=== PATIENT | female | born 1970 | race Hispanic/Latino ===

== ENCOUNTER 2017-03-16 02:30 | Emergency (ER) | payer SELFPAY ==
[2017-03-16] MEDS ORDERED: ASPIRIN 325 MG TABLET ONE (02:43)
[2017-03-16 03:11] LABS: BASOPHILS % (AUTO) 1.3 % (0.0-5.0); EOSINOPHILS % (AUTO) 3.4 % (0.0-8.0); HEMATOCRIT 34.1 % (36-48); LYMPHOCYTES % (AUTO) 32.9 % (21.0-51.0); MEAN CORPUSCULAR VOLUME 72.7 fL (79-99); MONOCYTES % (AUTO) 8.6 % (3.0-13.0); NEUTROPHILS % (AUTO) 53.8 % (40.0-77.0); NUCLEATED RED BLOOD CELLS 0.1 % (0.0-0.19); PLATELET COUNT (AUTO) 358 K/uL (130-400); RED CELL DISTRIBUTION WIDTH 16.9 % (11.0-15.5); WHITE BLOOD COUNT (AUTO) 8.9 K/uL (4.8-10.8)
[2017-03-16 03:21] LABS: CREATININE 0.7 mg/dL (0.5-1.5); POTASSIUM 3.3 mmol/L (3.5-5.1)
[2017-03-16 03:31] LABS: INR 0.9 (0.85-1.15); PARTIAL THROMBOPLASTIN TIME 24.3 SEC (26.3-35.5); PROTHROMBIN TIME 9.5 SEC (9.6-11.6)
[2017-03-16 03:34] LABS: ALBUMIN 3.7 g/dL (3.5-5.0); BILIRUBIN,TOTAL 0.1 mg/dL (0.2-1.0); CREATINE KINASE MB 0.8 ng/mL (0.5-3.6); TOTAL PROTEIN, SERUM 7.9 g/dL (6.0-8.3)
[2017-03-16] MEDS ORDERED: MORPHINE SULFATE 2 MG/ML 1ML SYG ONE (04:49)
== END 2017-03-16 05:24 | disposition home or self-care (01) ==
LOC: EDH 02:30
DX: R07.89 Other chest pain (principal); I10 Essential (primary) hypertension; R22.0 Localized swelling, mass and lump, head; Z98.51 Tubal ligation status; Z72.0 Tobacco use
CPT/HCPCS: 36415; 71045; 80053; 81025; 82550; 82553; 83874; 84484; 85025; 85610; 85730; 93005; 94761; 96374

== ENCOUNTER 2017-05-09 05:05 | Emergency (ER) | payer SELFPAY ==
[2017-05-09] MEDS ORDERED: ASPIRIN 81MG TAB.CHEW ONE (05:28)
[2017-05-09 05:33] LABS: BASOPHILS % (AUTO) 1.2 % (0.0-5.0); EOSINOPHILS % (AUTO) 4.8 % (0.0-8.0); HEMATOCRIT 35.5 % (36-48); LYMPHOCYTES % (AUTO) 32.3 % (21.0-51.0); MEAN CORPUSCULAR HEMOGLOBIN 23.8 pg (27.0-33.0); MEAN CORPUSCULAR HGB CONC 32.8 g/dL (32.0-36.0); MEAN CORPUSCULAR VOLUME 72.4 fL (79-99); MONOCYTES % (AUTO) 10.1 % (3.0-13.0); NEUTROPHILS % (AUTO) 51.6 % (40.0-77.0); PLATELET COUNT (AUTO) 301 K/uL (130-400); RED CELL DISTRIBUTION WIDTH 16.9 % (11.0-15.5); WHITE BLOOD COUNT (AUTO) 8.5 K/uL (4.8-10.8)
[2017-05-09 05:49] LABS: CREATININE 0.7 mg/dL (0.5-1.5); INR 0.91 (0.85-1.15); PARTIAL THROMBOPLASTIN TIME 24.7 SEC (26.3-35.5); POTASSIUM 3.8 mmol/L (3.5-5.1); PROTHROMBIN TIME 9.6 SEC (9.6-11.6)
[2017-05-09] MEDS ORDERED: HYDROCODONE/ACETAMINOPHEN 5/325 MG TAB ONE (06:04)
[2017-05-09 06:05] LABS: ALBUMIN 3.7 g/dL (3.5-5.0); BILIRUBIN,TOTAL 0.2 mg/dL (0.2-1.0)
[2017-05-09] MEDS ORDERED: MORPHINE SULFATE 4 MG/1ML SYG ONE (06:33)
[2017-05-09] MEDS ORDERED: ONDANSETRON HCL MDV 20ML 2 MG/ML VIAL ONE (06:33)
== END 2017-05-09 06:51 | disposition home or self-care (01) ==
LOC: EDH 05:05
DX: F41.9 Anxiety disorder, unspecified (principal); I10 Essential (primary) hypertension; R07.89 Other chest pain; Z72.0 Tobacco use
CPT/HCPCS: 36415; 71045; 80053; 82550; 84484; 84702; 85025; 85610; 85730; 93005; 96374; 96375; 99285; J2270

== ENCOUNTER 2019-02-06 09:55 | Emergency (ER) | payer SELFPAY ==
[2019-02-06] MEDS ORDERED: ASPIRIN 325 MG TABLET ONE (10:10)
[2019-02-06 10:12] LABS: BASOPHILS % (AUTO) 0.8 % (0.0-5.0); EOSINOPHILS % (AUTO) 1.5 % (0.0-8.0); HEMATOCRIT 40.4 % (36-48); LYMPHOCYTES % (AUTO) 22.8 % (21.0-51.0); MEAN CORPUSCULAR HEMOGLOBIN 27.6 pg (27.0-33.0); MEAN CORPUSCULAR HGB CONC 32.4 g/dL (32.0-36.0); MEAN CORPUSCULAR VOLUME 85.2 fL (79-99); MONOCYTES % (AUTO) 6.9 % (3.0-13.0); NEUTROPHILS % (AUTO) 67.8 % (40.0-77.0); PLATELET COUNT (AUTO) 322 K/uL (130-400); RED BLOOD CELL COUNT(AUTO) 4.74 MIL/uL (4.00-5.50); RED CELL DISTRIBUTION WIDTH 13.7 % (11.0-15.5); WHITE BLOOD COUNT (AUTO) 8.9 K/uL (4.8-10.8)
[2019-02-06] MEDS ORDERED: DIAZEPAM 5 MG TABLET ONE (10:14)
[2019-02-06 10:20] LABS: CREATININE 0.7 mg/dL (0.5-1.5); POTASSIUM 4.9 mmol/L (3.5-5.1)
[2019-02-06 10:26] LABS: ALBUMIN 3.5 g/dL (3.5-5.0); BILIRUBIN,TOTAL 0.3 mg/dL (0.2-1.0); TOTAL PROTEIN, SERUM 7.6 g/dL (6.0-8.3)
[2019-02-06 10:29] LABS: INR 0.92 (0.85-1.15); PARTIAL THROMBOPLASTIN TIME 26.2 SEC (26.3-35.5); PROTHROMBIN TIME 9.7 SEC (9.6-11.6)
[2019-02-06] MEDS ORDERED: KETOROLAC TROMETHAMINE 30MG/ML ONE (11:26)
== END 2019-02-06 12:58 | disposition home or self-care (01) ==
LOC: EDH 09:55
DX: R07.89 Other chest pain (principal); R51 Headache; I10 Essential (primary) hypertension; Z98.51 Tubal ligation status
CPT/HCPCS: 36415; 71045; 80053; 82550; 84484 ×2; 85025; 85610; 85730; 93005 ×2; 96374; 99285; J1885

== ENCOUNTER 2024-11-21 11:40 | Emergency (ER) | payer SELFPAY ==
[~2024-11-21] VITALS: Ht 152.4 cm; Wt 80.7 kg
--- NOTE | 2024-11-21 11:55 | ERN ---
General Chief Complaint: Headache Stated Complaint: HEADACHE Time Seen by MD: 11:42 History of Present Illness Initial Comments 54-year-old female who presents to emergency room with the acute onset anxiety. Patient states that her anxiety was very high and wanted to get checked out. Of note patient states that her son recently tried to commit suicide but was unsuccessful. Also states that her other son has been abusing drugs recently. No fever. No cough. No shortness a breath. No nausea vomiting diarrhea. No numbness or tingling. She states that she has had a CVA before in the past however they resolve spontaneously and only occur when she has high levels of anxiety. PCP: Dr. Ovalles Allergies: Coded Allergies: No Known Allergies (Unverified Allergy, Unknown, 11/05/23) Past Medical History Past Medical History: Anxiety, CVA, Depression, Diabetes-Type II, Hypertension Past Surgical History: Cholecystectomy, Other Surgical History Other: TUBAL LIGATION Psych: (+) depression, (+) anxiety Review of Systems: was completed, & the rest were negative. Physical Exam General Appearance: (+) no apparent distress, (+) anxious Orientation: (+) oriented x 3 Eyes Comment Positive tearing. 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, (+) normal gait Neurologic/Psychiatric Comment Anxious Skin: (+) normal color Results Laboratory and Microbiology Lab and Micro Result Laboratory Tests Test 11/21/24 12:17 White Blood Count 10.1 K/uL (4.8-10.8) Red Blood Count 4.83 MIL/uL (4.00-5.50) Hemoglobin 13.6 g/dL (12.0-16.0) Hematocrit 42.0 % (36-48) Mean Corpuscular Volume 87.0 fL (79-99) Mean Corpuscular Hemoglobin 28.2 pg (27.0-33.0) Mean Corpuscular Hemoglobin Concent 32.4 g/dL (32.0-36.0) Red Cell Distribution Width 14.3 % (11.0-15.5) Platelet Count 299 K/uL (130-400) Mean Platelet Volume 10.6 fL (7.5-10.5) H Immature Granulocyte % (Auto) 0.3 % (0-1) Neutrophils (%) (Auto) 73.6 % (40.0-77.0) Lymphocytes (%) (Auto) 18.5 % (21.0-51.0) L Monocytes (%) (Auto) 5.2 % (3.0-13.0) Eosinophils (%) (Auto) 1.4 % (0.0-8.0) Basophils (%) (Auto) 1.0 % (0.0-5.0) Neutrophils # (Auto) 7.4 K/uL (1.8-7.7) Lymphocytes # (Auto) 1.9 K/uL (1.0-4.8) Monocytes # (Auto) 0.5 K/uL (0.1-1.0) Eosinophils # (Auto) 0.14 K/uL (0.00-0.70) Basophils # (Auto) 0.10 K/uL (0.00-0.20) Absolute Immature Granulocyte (auto 0.03 K/uL (0-1) Nucleated Red Blood Cells 0.0 % (0.0-0.19) Sodium Level 140 mmol/L (136-145) Potassium Level 3.7 mmol/L (3.5-5.1) Chloride Level 103 mmol/L (101-111) Carbon Dioxide Level 27 mmol/L (21-32) Blood Urea Nitrogen 14 mg/dL (7-18) Creatinine 0.5 mg/dL (0.5-1.0) Glomerular Filtration Rate Calc 111 mL/min (>90) Random Glucose 138 mg/dL (70-105) H Total Calcium 8.7 mg/dL (8.5-10.1) MDM 54-year-old female here for evaluation of acute anxiety. No signs and symptoms concerning for stroke at this time. We will get basic blood work and provide fluids. We will also give Atarax for acute stress reaction. Patient re-evaluated at this time. She is well-appearing no acute distress is much more calm than initial presentation. She understands that she needs to follow up with the PCP for management and evaluation of stress. At this time we will give her a short prescription for Atarax PRN for the next few days. Advised on calming techniques. She is advised also to come back to the emergency room if she has worsening symptoms. She understands that her triggers are her two children who are going through multiple issues at this time. Reviewed labs with the patient. We will discharge at this time. Patient is amenable to discharge ED Course Orders Procedure Category Date Status Time Basic Metabolic Panel LAB 11/21/24 Complete 11:53 Cbc With Differential LAB 11/21/24 Complete 11:53 Urinalysis Profile LAB 11/21/24 Logged 11:53 0.9%Nacl 1000ml (Ns PHA 11/21/24 Complete 1000ml) 12:00 Hydroxyzine 50mg Vial PHA 11/21/24 Complete (Atarax 50mg Inj) 12:00 Current Medications Medications (Trade) Dose Ordered Sig/Jeff Route PRN Reason Start Time Stop Time Status Last Admin Dose Admin Hydroxyzine HCl (ATArax 50MG INJ) 25 mg ONCE ONCE IM 11/21/24 12:00 11/21/24 12:01 DC 11/21/24 12:16 Sodium Chloride 1,000 ml @ 0 mls/hr ONCE ONCE IV 11/21/24 12:00 11/21/24 12:01 DC 11/21/24 12:17 Vital Signs Date Time Temp Pulse Resp B/P (MAP) Pulse Ox O2 Delivery O2 Flow Rate FiO2 11/21/24 11:55 98.4 74 20 170/91 97 Room Air* 0 21 11/21/24 11:42 97.9 92 18 175/102 98 Room Air 1255: Patient well-appearing no acute distress. Is more calm at this time. States the medication helped her. DX & DISP Disposition: Discharge Decision to Admit Time: 12:57 Departure Impression: Primary Impression: Acute stress reaction Condition: Stable Referrals: SELF,REFERRAL (PCP) LEIGHA VIVAS MD Nov 21, 2024 11:55
[2024-11-21] MEDS: 0.9%NACL 1000ML 1,000 ML IV ONE (12:17)
[2024-11-21 12:24] LABS: IMMATURE GRANULOCYTE ABSOLUTE 0.03 K/uL (0-1); NUCLEATED RED BLOOD CELLS 0.0 % (0.0-0.19); PLATELET COUNT (AUTO) 299 K/uL (130-400); RED BLOOD CELL COUNT(AUTO) 4.83 MIL/uL (4.00-5.50); RED CELL DISTRIBUTION WIDTH 14.3 % (11.0-15.5); WHITE BLOOD COUNT (AUTO) 10.1 K/uL (4.8-10.8)
[2024-11-21 12:32] LABS: CREATININE 0.5 mg/dL (0.5-1.0); GLOMERULAR FILTR. RATE CALC 111.0 mL/min (>90); GLUCOSE,RANDOM 138.0 mg/dL (70-105); SODIUM SERUM 140.0 mmol/L (136-145); UREA NITROGEN, BLOOD 14.0 mg/dL (7-18)
[2024-11-21] MEDS ORDERED: HYD25 PO (13:44)
[2024-11-21 13:46] VITALS: BP 140/71; PULSE 74; RESP 18; TEMP 98.1; O2SAT 98
== END 2024-11-21 13:48 | disposition home or self-care (01) ==
LOC: EDH 11:40
DX: F43.0 Acute stress reaction (principal); E11.9 Type 2 diabetes mellitus without complications; F41.9 Anxiety disorder, unspecified; I10 Essential (primary) hypertension; Z86.73 Personal history of transient ischemic attack (TIA), and cerebral infarction without residual deficits; Z90.49 Acquired absence of other specified parts of digestive tract; Z98.51 Tubal ligation status
CPT/HCPCS: 99283; 96360; 80048; 85025; 36415; 96372; J3410; J7030

== ENCOUNTER 2024-11-23 16:55 | Inpatient (IN) | payer SELFPAY ==
[~2024-11-23] VITALS: Ht 152.4 cm; Wt 79.7 kg
[~2024-11-23 16:55] MED LIST: HYD25 PO
--- NOTE | 2024-11-23 17:25 | EKG ---
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
[2024-11-23 17:34] LABS: IMMATURE GRANULOCYTE ABSOLUTE 0.02 K/uL (0-1); NUCLEATED RED BLOOD CELLS 0.0 % (0.0-0.19); PLATELET COUNT (AUTO) 311 K/uL (130-400); RED BLOOD CELL COUNT(AUTO) 4.97 MIL/uL (4.00-5.50); RED CELL DISTRIBUTION WIDTH 13.7 % (11.0-15.5); WHITE BLOOD COUNT (AUTO) 8.9 K/uL (4.8-10.8)
[2024-11-23 17:42] LABS: CREATININE 0.6 mg/dL (0.5-1.0); GLOMERULAR FILTR. RATE CALC 106.0 mL/min (>90); GLUCOSE,RANDOM 99.0 mg/dL (70-105); SODIUM SERUM 141.0 mmol/L (136-145); UREA NITROGEN, BLOOD 14.0 mg/dL (7-18)
[2024-11-23 17:51] LABS: CREATINE KINASE, TOTAL 78.0 U/L (21-232)
--- NOTE | 2024-11-23 17:57 | HMCIMG ---
EXAM: CT Head Without IV contrast. CLINICAL HISTORY: numbness TECHNIQUE: Axial computed tomography images of the head/brain without intravenous contrast. COMPARISON: None provided. FINDINGS: BRAIN: No evidence of acute hemorrhage. No mass lesion. No CT evidence for acute territorial infarct. No midline shift or extra-axial collections. VENTRICLES: No hydrocephalus. ORBITS: The orbits are unremarkable. SINUSES AND MASTOIDS: The paranasal sinuses and mastoid air cells are clear. BONES: No fracture. SOFT TISSUES: Unremarkable. IMPRESSION: No acute intracranial abnormality. /[place]
--- NOTE | 2024-11-23 18:19 | NUR ---
ASSUMED PT CARE AT THIS TIME.
--- NOTE | 2024-11-23 19:07 | ERN ---
General Chief Complaint: Numbness Stated Complaint: LEFT SIDE WEAKNESS/NUMBNESS X 3 DAYS Time Seen by MD: 17:07 Time Seen by Midlevel: 17:07 Source: patient History of Present Illness Initial Comments Patient is a 54-year-old female presenting to the emergency department for evaluation of hypertension. The patient states her blood pressure was over 200 systolic prior to arrival. She does have a history of hypertension and reports taking her medications as prescribed today. She is on lisinopril 20 mg. However, she was also having chest discomfort and worsening left-sided weakness along with left facial numbness. She does report having a history of stroke two years ago and has residual left-sided weakness but states her weakness is worse today. She is having the same symptoms she had when she was diagnosed with a stroke two years ago. Allergies: Coded Allergies: No Known Allergies (Unverified Allergy, Unknown, 11/05/23) Home Meds Active Scripts Hydroxyzine HCl (Atarax) 25 Mg Tab, 1 CAP PO TID for anxiety, #21 CAP 0 Refills Prov:LEIGHA VIVAS MD 11/21/24 Past Medical History Past Medical History: Anxiety, CVA, Depression, Diabetes-Type II, High Cholesterol, Hypertension Past Surgical History: Cholecystectomy, Other, BTL Surgical History Other: TUBAL LIGATION ROS Dictation CONSTITUTIONAL: Negative except for HPI HEAD/FACE: Negative except for HPI EENT: Negative except for HPI RESPIRATORY: Negative except for HPI GASTROINTESTINAL/ABDOMINAL: Negative except for HPI GENITOURINARY: Negative except for HPI MUSCULOSKELETAL: Negative except for HPI INTEGUMENTARY: Negative except for HPI NEUROLOGICAL/PSYCH: Negative except for HPI HEMATOLOGIC/LYMPHATIC: Negative except for HPI All Systems Negative, Except as noted above. 13 point review of systems assessed and all negative except for above. Physical Exam Physical Exam Dictation Vital Signs reviewed General Appearance: Alert, oriented x 3, no acute distress, well developed, nourished. Head and Face: non-traumatic. Eyes: PERRL, pink conjunctivas, eyelid no trauma, anterior chamber with arcus senilis. Ears: Pinnas intact and no signs of trauma or erythema ear canals clear and no discharge TM no erythema Nose: No discharge, no bleeding. Oropharynx: Mouth normal, tongue pink, pharynx clear,no erythema, tonsils no exudates, no abscesses noted, mucous membrane moist Neck: Supple, non-tender, no thyromegaly, no masses, no JVD, no bruits Breast:Deferred Chest:No tenderness, no crepitus, no paradoxical movement, no retractions Lungs:Clear, well-ventilated, symmetric, no rales, no wheezing, no rhonchi, no stridor, good breath sounds bilaterally Heart: Regular rate, regular rhythm, no murmur, no gallops Vascular: no peripheral edema, Abdomen: Soft, positive bowel sounds, nondistended, no guarding, nontender, no rebound, no masses no hepatomegaly, no splenomegaly, no Jaramillo's sign, no hernias. Rectal: Deferred Genital: Deferred Neurological: Normal speech, motor function intact, sensory function intact Musculoskeletal: Neck nontender, full range of motion, back nontender, full range of motion, Extremities: Residual left-sided weakness to the left upper and left lower extremity, decreased sensation to the left face. Skin: Color pink, dry, no turgor, no rash, no lacerations, no abrasions, no contusions. Lymphatic: Deferred NIH STROKE SCALE: NIH STROKE SCALE Response (Comments) Value Level of Consciousness Alert 0 Ask patient month and their age Answers both correct 0 Command to open eyes, make fist and let go Obeys both correct 0 Best gaze (horizontal eye movement) Normal 0 Visual Field Testing No Visual Field Loss 0 Facial Paresis Normal / Symmetrical 0 Motor Function - Left Arm Drift 1 Motor Function - Right Arm Normal 0 Motor Function - Left Leg Drift 1 Motor Function - Right Leg Normal 0 Limb Ataxia No Ataxia 0 Sensory-pin prick to arms, legs, trunk and face Mild to Moderate Decrease 1 Best Language (describe picture, name items and read) No Aphasia 0 Dysarthria (read several words) Normal Articulation 0 Extinction and Inattention Normal 0 Total 3 Neuro Comment: Patient is not a candidate for TNK given that symptoms started over 24 hours ago. Results Laboratory and Microbiology Lab and Micro Result Laboratory Tests Test 11/23/24 17:28 White Blood Count 8.9 K/uL (4.8-10.8) Red Blood Count 4.97 MIL/uL (4.00-5.50) Hemoglobin 14.0 g/dL (12.0-16.0) Hematocrit 42.5 % (36-48) Mean Corpuscular Volume 85.5 fL (79-99) Mean Corpuscular Hemoglobin 28.2 pg (27.0-33.0) Mean Corpuscular Hemoglobin Concent 32.9 g/dL (32.0-36.0) Red Cell Distribution Width 13.7 % (11.0-15.5) Platelet Count 311 K/uL (130-400) Mean Platelet Volume 10.2 fL (7.5-10.5) Immature Granulocyte % (Auto) 0.2 % (0-1) Neutrophils (%) (Auto) 64.0 % (40.0-77.0) Lymphocytes (%) (Auto) 27.3 % (21.0-51.0) Monocytes (%) (Auto) 6.4 % (3.0-13.0) Eosinophils (%) (Auto) 1.2 % (0.0-8.0) Basophils (%) (Auto) 0.9 % (0.0-5.0) Neutrophils # (Auto) 5.7 K/uL (1.8-7.7) Lymphocytes # (Auto) 2.4 K/uL (1.0-4.8) Monocytes # (Auto) 0.6 K/uL (0.1-1.0) Eosinophils # (Auto) 0.11 K/uL (0.00-0.70) Basophils # (Auto) 0.08 K/uL (0.00-0.20) Absolute Immature Granulocyte (auto 0.02 K/uL (0-1) Nucleated Red Blood Cells 0.0 % (0.0-0.19) Sodium Level 141 mmol/L (136-145) Potassium Level 3.5 mmol/L (3.5-5.1) Chloride Level 104 mmol/L (101-111) Carbon Dioxide Level 30 mmol/L (21-32) Blood Urea Nitrogen 14 mg/dL (7-18) Creatinine 0.6 mg/dL (0.5-1.0) Glomerular Filtration Rate Calc 106 mL/min (>90) Random Glucose 99 mg/dL (70-105) Total Calcium 8.8 mg/dL (8.5-10.1) Magnesium Level 1.80 mg/dL (1.80-2.40) Total Creatine Kinase 78 U/L (21-232) # Troponin I High Sensitivity 8 ng/L (4-50) B-Type Natriuretic Peptide 14 pg/mL (0-100) Labs Reviewed?: Yes MDM MDM: Differential diagnosis: Intracranial bleed, acute ischemic stroke, electrolyte abnormality Rationale: Tests considered and ordered secondary to shared decision making include: Previous outside records reviewed: Old ER visits. Risk of complication and/or morbidity or mortality of patient management: None Medications-Per medication reconciliation Need for hospitalization: Patient does meet criteria for hospitalization. Need for emergency major/minor surgery: No There are no social concerns with this patient. Prescription drug management Prescriptions will include symptomatic care Patient's prior external medical records from other ER visits were reviewed by me as indicated. Prior testing and results from previous visits were reviewed. Prior tests were taken into account with medical decision making and resource utilization, independent historian/historians were used to obtain complete medical history. I independently interpreted the test that were performed, results were reviewed by me and considered findings on radiology if ordered. Medical management and examination interpretation discussions were had by me with other qualified healthcare professionals as indicated for the patient's care. ED Course Orders Procedure Category Date Status Time 12 Lead Ekg Tracing- EKG 11/23/24 Complete Technical 17:07 Cbc With Differential LAB 11/23/24 Complete 17:07 Basic Metabolic Panel LAB 11/23/24 Complete 17:07 B-Type Natriuretic LAB 11/23/24 Complete Peptide 17:07 Creatine Kinase, Total LAB 11/23/24 Complete 17:07 Drug Screen Urine LAB 11/23/24 Logged 17:07 Magnesium LAB 11/23/24 Complete 17:07 Troponin I High LAB 11/23/24 Complete Sensitivity 17:07 Ct Head/Brain W/O CT 11/23/24 Resulted Contrast 17:07 Hydralazine 20mg Inj PHA 11/23/24 Complete (Apresoline 20mg In 17:30 Chest 1vw RAD 11/23/24 Logged 19:02 Troponin I High LAB 11/23/24 In Process Sensitivity 19:03 Neurology Consult CONPHYSVC 11/24/24 Transmitted 08:00 Aspirin 325mg Tab PHA 11/23/24 Complete (Aspirin 325mg Tab) 19:30 Admit Orders ADM 11/23/24 Transmitted 19:16 Urinalysis Profile LAB 11/23/24 Logged 19:25 Current Medications Medications (Trade) Dose Ordered Sig/Jeff Route PRN Reason Start Time Stop Time Status Last Admin Dose Admin Aspirin (Aspirin 325mg Tab) 325 mg ONCE ONCE PO 11/23/24 19:30 11/23/24 19:31 DC Hydralazine HCl (APRESOLine 20MG INJ) 10 mg ONCE ONCE IV 11/23/24 17:30 11/23/24 17:31 DC Vital Signs Date Time Temp Pulse Resp B/P (MAP) Pulse Ox O2 Delivery O2 Flow Rate FiO2 11/23/24 18:19 75 16 166/96 99 Room Air* 0 21 11/23/24 16:57 98.2 81 16 200/98 99 Room Air 0 [facility] [address] [place] [address] IMAGING REPORT Signed PATIENT: JERMAINE LOUIS MR#: [id number] : 1970 SEX: F AGE: 54 LOCATION: [facility] ORDER 08 STATUS: REG REPORT#: [id number] SERVICE 06 REASON: numbness ORDERING PHYSICIAN: ELSY HANSON PROCEDURE: HEAD WO - CT HEAD/BRAIN W/O CONTRAST EXAM: CT Head Without IV contrast. CLINICAL HISTORY: numbness TECHNIQUE: Axial computed tomography images of the head/brain without intravenous contrast. COMPARISON: None provided. FINDINGS: BRAIN: No evidence of acute hemorrhage. No mass lesion. No CT evidence for acute territorial infarct. No midline shift or extra-axial collections. VENTRICLES: No hydrocephalus. ORBITS: The orbits are unremarkable. SINUSES AND MASTOIDS: The paranasal sinuses and mastoid air cells are clear. BONES: No fracture. SOFT TISSUES: Unremarkable. IMPRESSION: No acute intracranial abnormality. /[place] DICTATED BY: LISA FABIAN MD DATE: 11/23/241855 ELECTRONICALLY SIGNED BY: LISA FABIAN MD DATE: 11/23/241855 DX & DISP Disposition: Inpatient Departure Impression: Primary Impression: Left-sided weakness Additional Impression: Stroke-like symptoms Condition: Stable Referrals: JEREMIAH LOCKE MD (PCP) I have reviewed the case, and I agree with, Diagnosis and Plan I performed the substantive portion of the visit. I have reviewed and personally made and approve the management plan that is documented in the note by myself or the JOSE. I acknowledge for responsibility for the patient's management plan. ELSY HANSON Nov 23, 2024 19:07
--- NOTE | 2024-11-23 19:36 | NUR ---
DAUGHTER GEORGES LOUIS [phone]
[2024-11-23] MEDS: ASPIRIN 325MG TAB PO ONE (19:44)
--- NOTE | 2024-11-23 19:45 | HP ---
[facility] HISTORY & PHYSICAL Date Patient Seen: Nov 23, 2024 Time of Visit: 19:45 Supervising Physician: Dr. Red Primary Care Physician: Dr. Candelario Ovalles Outpatient Specialists: Inpatient Consults: PROBLEM LIST: Stroke-like signs and symptoms (left facial paresthesia and left-sided weakness), POA Hypertensive emergency, POA Left-sided headache Prior history of CVA Anxiety/depression Diabetes mellitus with hyperglycemia Hypercholesteremia Obesity, BMI 34.3 HPI: Ms. Lezama, is a 54-year-old female with a history of CVA, anxiety, depression, diabetes-type II, high cholesterol, hypertension who presented with [facility] via EMS for evaluation of uncontrolled hypertension. The patient stated her blood pressure was over 200 systolic prior to arrival. She does have a history of hypertension and reports taking her medications as prescribed today. She is on lisinopril 20 mg and metoprolol. However, she was also having chest discomfort and worsening left-sided weakness along with left facial numbness. She does report having a history of stroke two years ago and has residual left-sided weakness but stated her weakness is worse today. She is having the same symptoms she had when she was diagnosed with a stroke two years ago. VS: HR 81 bpm, RR 16 bpm, BP 200/98, 99%, 98.2 F. Labs: WBC WNL, Chemistry: WNL. Trop and BNP Neg, UA: Negative Nitrate, Negative Leuk Est, Toxicology: UDS: Negative.Chest X-Ray 1. No acute findings. 2. Ectatic aorta. 3. Borderline cardiomegaly. Head CT: No acute intracranial abnormality. The patient was assessed in ED 14. No family at bedside. The patient's breathing was even, unlabored, in no distress. The patient states that she has left-sided forehead/headache. The patient reports that she has been trying to exercise, lose weight, and her blood pressures have been WNL, systolic 120s two months ago. After the to monitor blood pressure has been high around 160s and above. Her multiple questions and concerns were addressed. I informed her of labs, diagnostics, plan of care. She verbalized understanding and is in agreement with the plan. Plan and assessment are listed below. PAST MEDICAL HX: see above PAST SURGICAL HX: Tubal ligation SOCIAL HISTORY: No tobacco, ETOH, or illicit drug use Coded Allergies: No Known Allergies (Unverified Allergy, Unknown, 11/05/23) REVIEW OF SYSTEMS: 12 point ROS reviewed with patient. Pertinent positives mentioned above. Otherwise negative. PHYSICAL EXAM: GENERAL: Alert, awake oriented x 3 HEENT: EOMI, Sclera non icteric, moist mucosa NECK: Supple, no JVD, trachea midline LUNGS: Clear breath sounds bilaterally. No wheezes HEART: Regular rate and rhythm. Normal S1 and S2, without murmurs ABD: Abdomen soft, nontender. Bowel sounds present EXT: No clubbing cyanosis or edema NEURO: Alert and oriented X4. Left arm and left leg slight drift. Had trouble touching her nose with her left hand. Otherwise no other neuro deficits noted. Vital Signs (last 8hr) Date Time Temp Pulse Resp B/P (MAP) Pulse Ox O2 Delivery O2 Flow Rate FiO2 11/23/24 18:19 75 16 166/96 99 Room Air* 0 21 11/23/24 16:57 98.2 81 16 200/98 99 Room Air 0 LABS: Hematology Labs: Test 11/23/24 17:28 Range/Units White Blood Count 8.9 4.8-10.8 K/uL Red Blood Count 4.97 4.00-5.50 MIL/uL Hemoglobin 14.0 12.0-16.0 g/dL Hematocrit 42.5 36-48 % Mean Corpuscular Volume 85.5 79-99 fL Mean Corpuscular Hemoglobin 28.2 27.0-33.0 pg Mean Corpuscular Hemoglobin Concent 32.9 32.0-36.0 g/dL Red Cell Distribution Width 13.7 11.0-15.5 % Platelet Count 311 130-400 K/uL Mean Platelet Volume 10.2 7.5-10.5 fL Immature Granulocyte % (Auto) 0.2 0-1 % Neutrophils (%) (Auto) 64.0 40.0-77.0 % Lymphocytes (%) (Auto) 27.3 21.0-51.0 % Monocytes (%) (Auto) 6.4 3.0-13.0 % Eosinophils (%) (Auto) 1.2 0.0-8.0 % Basophils (%) (Auto) 0.9 0.0-5.0 % Neutrophils # (Auto) 5.7 1.8-7.7 K/uL Lymphocytes # (Auto) 2.4 1.0-4.8 K/uL Monocytes # (Auto) 0.6 0.1-1.0 K/uL Eosinophils # (Auto) 0.11 0.00-0.70 K/uL Basophils # (Auto) 0.08 0.00-0.20 K/uL Absolute Immature Granulocyte (auto 0.02 0-1 K/uL Nucleated Red Blood Cells 0.0 0.0-0.19 % Chemistry Labs: Test 11/23/24 17:28 Range/Units Sodium Level 141 136-145 mmol/L Potassium Level 3.5 3.5-5.1 mmol/L Chloride Level 104 101-111 mmol/L Carbon Dioxide Level 30 21-32 mmol/L Blood Urea Nitrogen 14 7-18 mg/dL Creatinine 0.6 0.5-1.0 mg/dL Glomerular Filtration Rate Calc 106 >90 mL/min Random Glucose 99 70-105 mg/dL Total Calcium 8.8 8.5-10.1 mg/dL Magnesium Level 1.80 1.80-2.40 mg/dL Total Creatine Kinase 78 # 21-232 U/L Troponin I High Sensitivity 8 4-50 ng/L B-Type Natriuretic Peptide 14 0-100 pg/mL DIAGNOSTICS / RADIOLOGY RESULTS: [ ] PLAN -Admit to telemetry unit with continuous telemetry monitoring. -Neurological checks every 4 hours and as needed. -Antiplatelet therapy with Aspirin 80 mg p.o. daily. -Atorvastatin 40 mg p.o. daily. -Blood pressure checks every 4 hours and as needed. -Systolic blood pressure between 120 to 160 to maintain adequate brain perfus ion. -Keep NPO for now until passes dysphagia screen by nurse. -MRI of brain without contrast. -Pending Echo complete with spectral + color Doppler with bubble study to be done in am. -Consult neurology in a.m. -Reconcile home medications once available. -Glucometer checks before meals and at bedtime with regular insulin sliding scale as needed -Education on diabetic/low fat diet. -PT/OT evaluation. -Speech/swallow evaluation -PRN medications for pain, N/V, constipation, fever, hypertension -AM labs: CBC, CMP, mag, phos, TSH, A1C, Vitamin B12, fibrinogen, folate level, lipid panel. -Monitor renal and liver function -Monitor electrolytes and treat accordingly PRN -GI and DVT prophylaxis. -Further plan/orders per hospitalization course. NEURO: Minimize central acting medications as possible. Maintain fall precautions, adequate lighting during the day PULMONARY: Supplemental 02 as needed. Maintain aspiration precautions at all times CARDIOVASCULAR: Follow hemodynamics. Vital signs per facility protocol GI & NUTRITION: Continue with nutritional support. Continue stool softeners and laxatives as needed. KIDNEYS & ELECTROLYTES: Strict monitoring of intake, output and overall fluid balance. Avoid nephrotoxic medications to the extent possible. Medications to be dosed according to renal function. Monitor electrolytes and replace as needed ENDOCRINE: Maintain blood glucose between 100-180 at all times. Hypoglycemia protocol in place INFECTIOUS DISEASE: Trend temperature, WBC and procalcitonin level Follow cultures, deescalate antibiotics as soon as possible. Panculture if new onset fever ONCOLOGY/HEMATOLOGY/COAGULATION: Monitor for s/s of bleeding Monitor hemoglobin, coagulation studies as needed SKIN: Pressure ulcer prevention per facility protocol Specialty mattress ORTHO/REHAB: Continue PT/OT Prophylaxis: Continue GI and DVT prophylaxis Code Status: Full Resuscitation Disposition: TBD ATTESTATION BY PHYSICIAN I reviewed the documentation, medical decision making, and treatment plan as noted by the JOSE above. I agree with the findings and plan of care. Roque Red MD, LUCIA M [employer] HEL[employer] Nov 23, 2024 19:45
--- NOTE | 2024-11-23 21:07 | HMCIMG ---
EXAM: XR Chest, 1 View. CLINICAL HISTORY: 54-year-old female with chest pain. COMPARISON: None provided. FINDINGS: LUNGS: The lungs are clear. No consolidation. PLEURAL SPACES: No pleural effusion or pneumothorax. HEART: The heart size is borderline cardiomegaly, although this is negative. BONES: No acute osseous abnormality. VASCULATURE: Ectatic aorta. IMPRESSION: 1. No acute findings. 2. Ectatic aorta. 3. Borderline cardiomegaly. /[place]
[2024-11-23] MEDS: FAMOTIDINE 20MG TAB PO SCH (21:08)
[2024-11-23 21:29] LABS: APPEARANCE,URINE CLEAR (CLEAR); GLUCOSE, URINE (UA) NEGATIVE (NEGATIVE); LEUKOCYTE ESTERASE ,URINE NEGATIVE Leu/uL (NEGATIVE); NITRATE,URINE NEGATIVE (NEGATIVE); OCCULT BLOOD,URINE NEGATIVE (NEGATIVE)
[2024-11-23 21:30] LABS: ADD UA MICROSCOPIC NO
[2024-11-23 21:36] LABS: AMPHET/METH SCREEN,URINE NEGATIVE (NEGATIVE); BARBITURATE SCREEN, URINE NEGATIVE (NEGATIVE); CANNABINOID SCREEN,URINE NEGATIVE (NEGATIVE); COCAINE SCREEN,URINE NEGATIVE (NEGATIVE)
[2024-11-23 23:35] VITALS: BP 144/92; PULSE 71; RESP 18; TEMP 97.7; O2SAT 96
[2024-11-24 03:41] VITALS: BP 108/68; PULSE 64; RESP 18; TEMP 97.6
[2024-11-24 07:09] LABS: LDL DIRECT 94.0 mg/dL (0-99)
[2024-11-24 08:00] VITALS: BP 118/73; PULSE 68; RESP 18; TEMP 98.1; O2SAT 92
--- NOTE | 2024-11-24 08:01 | NUR ---
PHYSICIAN CONSULT SPOKE WITH DR. RAINES REGARDING NEW PATIENT CONSULT. PER MD HAS ALREADY ROUNDED IN HOSPITAL AND IS UNABLE TO SEE PATIENT TODAY. WILL MAKE ROUNDS AGAIN 11/25. PER MD REQUESTS PATIENT INFORMATION TO BE SENT BY TEXT.
[2024-11-24] MEDS ORDERED: PHARMACY COMMUNICATION MISC SCH ×2 (09:00→20:00)
[2024-11-24] MEDS: ASPIRIN 81MG CHEW TAB PO SCH (09:00)
[2024-11-24] MEDS: LISINOPRIL 20 MG TABLET PO SCH (09:00)
--- NOTE | 2024-11-24 10:00 | NUR ---
Patient gone to MRI. Addendum: 11/24/24 at 1235 by JERSON DONAHUE PT Amended: Links added.
--- NOTE | 2024-11-24 10:03 | NUR ---
DCP:HOME Pt currently lives alone in her home. Pt does not have any DME, home health, or provider services. Pt is able to complete ADLs independently. PCP is Dr. Ovalles and uses [facility] for any RX needs. At [place] pt will want to go home and family can assist with transportation. Addendum: 11/24/24 at 1007 by PATRICK ZAPATA SS Amended: Links added.
--- NOTE | 2024-11-24 11:18 | HMCIMG ---
EXAM: MR Brain without Intravenous Contrast. CLINICAL HISTORY: CVA TECHNIQUE: Multisequence, multiplanar magnetic resonance images acquired of the brain without intravenous contrast. COMPARISON: None provided. FINDINGS: BRAIN: No restricted diffusion to indicate acute infarction. No intracranial mass or hemorrhage. No midline shift or extra-axial fluid collection. No cerebellar tonsillar ectopia. No abnormal enhancement. The central arterial and venous flow voids are patent. VENTRICLES: No hydrocephalus. ORBITS: The orbits are normal. SINUSES AND MASTOIDS: There is mild mucoperiosteal thickening within the right maxillary sinus. Remaining paranasal sinuses and mastoid air cells are well pneumatized. BONES: No acute fracture or aggressive appearing osseous lesion. IMPRESSION: No acute infarction, intracranial hemorrhage, or mass lesion. /[place]
[2024-11-24 12:00] VITALS: BP 113/70; PULSE 72; RESP 18; TEMP 98.2
[2024-11-24] MEDS: 0.9%NACL 1000ML 1,000 ML IV SCH (12:30)
--- NOTE | 2024-11-24 12:31 | HMCSR ---
APPROVED REPORT EXAM: Two-dimensional and M-mode echocardiogram with Doppler and color Doppler. INDICATION ICD: Transcient Ischemic attack Contrast Details Indication: Rule out PFO Agent/Amount Used: Agitated Saline 2D Dimensions RVDd3.7 cmLVEF(%)59.3 (>50%)LVED Vol(simp.)96.0 mL IVSd1.2 (0.7-1.1cm)FS(%)31 %LVES Vol(simp.)39.0 mL LVDd4.0 (3.8-5.6cm)LA (2D)4.1 (1.6-4.0cm)LVEF(%, simp.)59 % PWd0.8 (0.7-1.1cm)Ao Root(2D)3.0 (2.0-3.7cm)LA ESV INDEX (BP)26.92 mL/m2 IVSs1.5 cmLVOT diam2.1 (1.8-2.4cm) LVDs2.8 (2.5-4.0cm)IVC diam2.3 cm PWs1.2 cm Deformation Strain Apical 4-16.0 % Apical 2-15.4 % Apical 3-18.4 % Global Strain-16.6 % M-Mode Dimensions EPSS0.6 cm LA (MM)3.7 (1.6-4.0cm) Ao Root(MM)3.1 (2.0-3.7cm) Aortic Valve AoV Vmax1.4 m/Cassie Peak GR7.9 mmHgLVOT Vmax1.2 m/s AoV VTI0.3 mAo Mean GR4.7 mmHgLVOT VTI0.23 m VLAD (VMAX)2.92 cm2AVA (VTI) 2.8 cm2 Mitral Valve MV E Vmax56.3 cm/sDECEL Mzwp410 ms MV A Vmax68.0 cm/s E/A ratio0.8 Pulmonary Valve PV Vmax0.9 m/sPV VTI0.22 mPV Mean GR2.3 mmHg PV Peak GR3.4 mmHg Tricuspid Valve TR Vmax1.7 m/sRAP (EST) 15 ibXfRPXU48.1 mmHg TR Peak GR11.1 mmHg Left Ventricle The left ventricle is normal size. GLS -17.0% Mild concentric left ventricular hypertrophy. The LVEF is 55-60%. Indeterminate diastolic dysfunction. Right Ventricle The right ventricle is normal size. The right ventricular systolic function is normal. Atria The left atrium size is normal. Evidence of PFOby agitated saline suggesting left to right shunt The right atrium size is normal. Aortic Valve Aortic valve is trileaflet and opens well. Trivial aortic regurgitation is present. There is no aorti c valvular stenosis. Mitral Valve The mitral valve is normal in structure. There is trace of mitral valve regurgitation noted. There is no mitral valve stenosis. Tricuspid Valve The tricuspid valve is normal in structure. There is no tricuspid valve regurgitation noted. Pulmonic Valve The pulmonary valve is normal in structure. There is no pulmonic valvular regurgitation. Great Vessels The aortic root is normal in size. IVC is dilated and collapses <50% with inspiration. Pericardium There is no pericardial effusion. Other Information Quality : Adequate Conclusion The left ventricle is normal size. Mild concentric left ventricular hypertrophy. The LVEF is 55-60%. Indeterminate diastolic dysfunction. The right ventricle is normal size. The right ventricular systolic function is normal. The left atrium size is normal. The right atrium size is normal. Evidence of PFOby agitated saline suggesting left to right shunt. No valvular pathology. IVC is dilated and collapses <50% with inspiration. There is no pericardial effusion.
[2024-11-24] MEDS: [UNRECOGNIZED DRUG - OTHER] IM ONE ×2 (13:00→22:51)
--- NOTE | 2024-11-24 14:15 | NUR ---
BEDSIDE SWALLOW EVAL COMPLETED. No s/s of aspiration. RECOMMEND: Regular solids, thin liquids and pills whole with liquids as tolerated. COMPENSATORY STRATEGIES: 1. sit upright during oral intake W[employer]URB[employer] SERVICE TECHNICIAN reviewed results and recommendations with patient and nurse Fariha. WIND TURB[employer] SERVICE TECHNICIAN educated patient on risks and consequences of aspiration. Speech therapy not warranted at this time. All questions answered. Addendum: 11/24/[address] [facility] DOM[facility]O Amended: Links added.
--- NOTE | 2024-11-24 14:20 | NUR ---
COGNITIVE-LINGUISTIC EVALUATION COMPLETED. WITHIN FUNCTIONAL LIMITS. EVALUATION: Pt AAOX4. SPEECH, LANGUAGE, AND COGNITIVE LINGUISTICS SKILLS ARE WITHIN FUNCTIONAL LIMITS. Pt REQUESTS WANTS AND NEEDS INDEPENDENTLY WITH CLEAR SPEECH INTELLIGIBILITY. Pt COMMUNICATING AT CONVERSATIONAL LEVEL WITH NO DEFICITS IDENTIFIED AT THIS TIME. Pt COMPLETED COGNITIVE-LINGUISTIC EVALUATION WITH CORRECT AND TIMELY ANSWERS. SPEECH THERAPY NOT WARRANTED. ALL QUESTIONS ANSWERED AT THIS TIME. [employer] MANUFACTURING CONSULTANT REVIEWED RESULTS AND RECOMMENDATIONS WITH PATIENT AND NURSE JANELL. Addendum: 11/24/[address] [facility] DOM[facility] Amended: Links added.
--- NOTE | 2024-11-24 18:21 | HMCIMG ---
EXAM: MRA Head Without IV contrast. CLINICAL HISTORY: stroke TECHNIQUE: Magnetic resonance angiography images of the head without intravenous contrast. Three-dimensional MIP reformations performed. CONTRAST: None. COMPARISON: None provided. FINDINGS: INTERNAL CAROTID ARTERIES: No significant stenosis. No aneurysm or AVM. ANTERIOR CEREBRAL ARTERIES: No significant stenosis. No aneurysm or AVM. MIDDLE CEREBRAL ARTERIES: No significant stenosis. No aneurysm or AVM. POSTERIOR CEREBRAL ARTERIES: No significant stenosis. No aneurysm or AVM. BASILAR ARTERY: No significant stenosis. No aneurysm or AVM. VERTEBRAL ARTERIES: No significant stenosis. No aneurysm or AVM. IMPRESSION: Unremarkable MRA of the brain. /[place]
--- NOTE | 2024-11-24 18:22 | HMCIMG ---
EXAM: MRA Neck without Intravenous Contrast. CLINICAL HISTORY: stroke TECHNIQUE: Magnetic resonance angiography images of the neck without intravenous contrast. Three-dimensional MIP reformations performed. CONTRAST: COMPARISON: None provided. FINDINGS: INTERNAL CAROTID ARTERIES: No significant stenosis based on NASCET criteria. COMMON CAROTID ARTERIES: No significant stenosis. No dissection. EXTERNAL CAROTID ARTERIES: No occlusion or dissection. VERTEBRAL ARTERIES: No significant stenosis. No dissection. BASILAR ARTERY: No significant stenosis. No dissection. SOFT TISSUES Unremarkable as visualized. IMPRESSION: Unremarkable MRA of the neck. /[place]
[2024-11-24 19:30] VITALS: BP 148/78; PULSE 76; RESP 19; TEMP 98.2
--- NOTE | 2024-11-24 19:43 | PN ---
[facility] PROGRESS NOTE Date Patient Seen: Nov 24, 2024 Time of Visit: 1419 Supervising Physician: Dr. Bennett Primary Care Physician: Dr. Candelario Ovalles Outpatient Specialists: Inpatient Consults: Neurology PROBLEM LIST: Suspected CVA/TIA Hypertensive emergency, POA 200/98 Intractable Left-sided headache Anxiety/depression Diabetes mellitus type 2with hyperglycemia A1c 6.4 Hypercholesteremia Obesity, BMI 34.3 History of prior CVA INTERVAL HISTORY: 11/24 patient was seen and examined by bedside with no family present. Patient is awake alert able to answer simple questions appropriately. Patient still reporting some paresthesia to left side of the face along with left lower extremity. Patient denies any chest pain or shortness of breadth. Denies any nausea vomiting or abdominal pain. Patient's initial CT head was unremarkable. Patient is currently pending echocardiogram. Patient is currently pending MRA head and neck. Patient's MRI was negative for acute stroke. Patient pending evaluation from Nephrology's appreciate assistance we will follow the recommendations. Patient will continue with aspirin and atorvastatin. REVIEW OF SYSTEMS: 12 point ROS reviewed with patient. Pertinent positives mentioned above. Otherwise negative. PHYSICAL EXAM: GENERAL: Alert, awake oriented x 3 HEENT: EOMI, Sclera non icteric, moist mucosa NECK: Supple, no JVD, trachea midline LUNGS: Clear breath sounds bilaterally. No wheezes HEART: Regular rate and rhythm. Normal S1 and S2, without murmurs ABD: Abdomen soft, nontender. Bowel sounds present EXT: No clubbing cyanosis or edema NEURO: Alert and oriented X4. Left arm and left leg slight drift. Had trouble touching her nose with her left hand. Otherwise no other neuro deficits noted. Vital Signs (last 8hr) Date Time Temp Pulse Resp B/P (MAP) Pulse Ox O2 Delivery O2 Flow Rate FiO2 11/24/24 12:00 98.2 72 18 113/70 93 Room Air 11/24/24 12:00 98.2 72 18 113/70 93 Room Air LABS: Hematology Labs: Test 11/23/24 17:28 Range/Units White Blood Count 8.9 4.8-10.8 K/uL Red Blood Count 4.97 4.00-5.50 MIL/uL Hemoglobin 14.0 12.0-16.0 g/dL Hematocrit 42.5 36-48 % Mean Corpuscular Volume 85.5 79-99 fL Mean Corpuscular Hemoglobin 28.2 27.0-33.0 pg Mean Corpuscular Hemoglobin Concent 32.9 32.0-36.0 g/dL Red Cell Distribution Width 13.7 11.0-15.5 % Platelet Count 311 130-400 K/uL Mean Platelet Volume 10.2 7.5-10.5 fL Immature Granulocyte % (Auto) 0.2 0-1 % Neutrophils (%) (Auto) 64.0 40.0-77.0 % Lymphocytes (%) (Auto) 27.3 21.0-51.0 % Monocytes (%) (Auto) 6.4 3.0-13.0 % Eosinophils (%) (Auto) 1.2 0.0-8.0 % Basophils (%) (Auto) 0.9 0.0-5.0 % Neutrophils # (Auto) 5.7 1.8-7.7 K/uL Lymphocytes # (Auto) 2.4 1.0-4.8 K/uL Monocytes # (Auto) 0.6 0.1-1.0 K/uL Eosinophils # (Auto) 0.11 0.00-0.70 K/uL Basophils # (Auto) 0.08 0.00-0.20 K/uL Absolute Immature Granulocyte (auto 0.02 0-1 K/uL Nucleated Red Blood Cells 0.0 0.0-0.19 % Chemistry Labs: Test 11/24/24 06:10 11/23/24 19:30 11/23/24 17:28 Range/Units Triglycerides Level 97 30-200 mg/dL Cholesterol Level 149 <200 mg/dL LDL Cholesterol 94 0-99 mg/dL HDL Cholesterol 43 35-85 mg/dL Vitamin B12 Level 3713 H 193-986 pg/mL Folic Acid (LAB) 18.60 2-20 ng/mL Troponin I High Sensitivity 8 4-50 ng/L Sodium Level 141 136-145 mmol/L Potassium Level 3.5 3.5-5.1 mmol/L Chloride Level 104 101-111 mmol/L Carbon Dioxide Level 30 21-32 mmol/L Blood Urea Nitrogen 14 7-18 mg/dL Creatinine 0.6 0.5-1.0 mg/dL Glomerular Filtration Rate Calc 106 >90 mL/min Random Glucose 99 70-105 mg/dL Hemoglobin A1c 6.4 H 4.0-6.0 % Estimated Average Glucose (eAG) 137 H 70-126 mg/dL Total Calcium 8.8 8.5-10.1 mg/dL Magnesium Level 1.80 1.80-2.40 mg/dL Total Creatine Kinase 78 # 21-232 U/L B-Type Natriuretic Peptide 14 0-100 pg/mL Coagulation Labs: Test 11/24/24 06:32 Range/Units Fibrinogen 477 H 180-350 mg/dL DIAGNOSTICS / RADIOLOGY RESULTS: na PLAN Follow up with neurology's recommendations Follow up with the MRA head and neck Follow up with echocardiogram with bubble study Continue mg daily Continue atorvastatin 40 mg q.h.s. Continue PT and OT NEURO: Minimize central acting medications as possible. Maintain fall precautions, adequate lighting during the day PULMONARY: Supplemental 02 as needed. Maintain aspiration precautions at all times CARDIOVASCULAR: Follow hemodynamics. Vital signs per facility protocol GI & NUTRITION: Continue with nutritional support. Continue stool softeners and laxatives as needed. KIDNEYS & ELECTROLYTES: Strict monitoring of intake, output and overall fluid balance. Avoid nephrotoxic medications to the extent possible. Medications to be dosed according to renal function. Monitor electrolytes and replace as needed ENDOCRINE: Maintain blood glucose between 100-180 at all times. Hypoglycemia protocol in place INFECTIOUS DISEASE: Trend temperature, WBC and procalcitonin level Follow cultures, deescalate antibiotics as soon as possible. Panculture if new onset fever ONCOLOGY/HEMATOLOGY/COAGULATION: Monitor for s/s of bleeding Monitor hemoglobin, coagulation studies as needed SKIN: Pressure ulcer prevention per facility protocol Specialty mattress ORTHO/REHAB: Continue PT/OT Prophylaxis: Continue GI and DVT prophylaxis Code Status: Full Resuscitation Disposition: TBD Case discussed with supervising physician plan of care agreed upon JENNIFER MENJIVAR Nov 24, 2024 19:43
[2024-11-24 23:40] VITALS: BP 141/88; PULSE 76; RESP 18; TEMP 98.4
[2024-11-25 03:32] VITALS: BP 123/78; PULSE 76; RESP 18; TEMP 97.8
--- NOTE | 2024-11-25 07:15 | HMCIMG ---
EXAMINATION: DUPLEX ULTRASOUND EXAMINATION OF THE BILATERAL CAROTID AND VERTEBRAL ARTERIES. CLINICAL HISTORY: CVA. COMPARISON: MRA neck without contrast dated 11/24/2024. TECHNIQUE: Real-time ultrasound scan of the bilateral carotid and vertebral arteries, 2-D grayscale, with color Doppler flow and spectral waveform analysis. FINDINGS: Color and spectral Doppler interrogation of the carotid vessels on the right demonstrate peak systolic velocities as follows: CCA (Proximal and distal): 104 and 94 cm/s respectively. Bulb: 88 cm/s ECA: 118 cm/s. ICA (Proximal, mid, and distal): 86, 118, and 131 cm/s respectively. Vertebral artery demonstrates antegrade flow: 62 cm/s. Right ICA/CCA ratio: 1.4 Peak systolic velocities on the left are as follows: CCA (Proximal, mid, and distal): 106 and 98 cm/s respectively. Bulb: 94 cm/s ECA: 102 cm/s. ICA (Proximal, mid, and distal): 92, 98 and 110 cm/s respectively. Vertebral artery demonstrates antegrade flow: 76 cm/s. Left ICA/CCA ratio: 1.1 Both the common carotid arteries and their branches reveal mild intimal thickening. IMPRESSION: Mild intimal thickening in the bilateral carotid arteries and their branches. There is no significant stenosis or flow limiting lesions. /[place]
[2024-11-25 07:38] VITALS: BP 114/79; PULSE 76; RESP 20; TEMP 97.5
[2024-11-25] MEDS ORDERED: TETR-68 PO (08:46)
[2024-11-25] MEDS ORDERED: METO-408 PO (08:46)
[2024-11-25] MEDS ORDERED: SERT-439 PO (08:46)
[2024-11-25] MEDS ORDERED: SEMA1PEN3 SQ (08:46)
[2024-11-25] MEDS ORDERED: DICY20TA2 PO (08:46)
[2024-11-25] MEDS ORDERED: GABAPENTIN (08:46)
[2024-11-25] MEDS ORDERED: PANT20TA18 PO (08:46)
[2024-11-25 08:47] VITALS: O2SAT 97
--- NOTE | 2024-11-25 10:03 | CONS ---
CONSULTATION NOTE Date of Service: Nov 25, 2024 Reason for Consultation: Evaluation of facial numbness Requesting Physician: Hospitalist HISTORY OF PRESENT ILLNESS: Ms. Garces is a 54-year-old female with a history of anxiety, depression, hypertension, dyslipidemia, and stroke three years ago presenting to the emergency department with symptoms of a hypertensive emergency. The patient reports that she began feeling unwell earlier in the week, experiencing difficulty with her usual swimming classes. On Saturday, she was unable to swim at all. She called for help when she felt something wasn't right and came to the emergency department with very high blood pressure. The patient states that her symptoms were similar to her previous stroke experience. Her blood pressure reached 215, at which point she had difficulty speaking clearly and making herself understood. Her son brought her to the emergency department when her blood pressure was at 215. In the emergency department, Ms. Garces's symptoms began to improve as her blood pressure started to decrease. Currently, she reports a persistent burning sensation on the left side of her body and feeling very hot. The patient notes that her blood pressure has now decreased to 115, significantly lower than the 200+ reading from the previous day. Ms. Garces denies having anxiety when asked by the emergency department staff. She also mentions that she does not remember if she initially came to the hospital on Saturday or Saturday, but confirms it was Saturday. Medical History - Hypertensive emergency with stroke-like symptoms, resulting in an emergency room visit - Stroke three years ago, affecting the left side with weakness and numbness - Anxiety - Depression - Hypertension - Dyslipidemia Social History - Exercise: Patient attends swimming classes regularly REVIEW OF SYSTEMS CONSTITUTIONAL: Denies fever, chills, or fatigue. HEAD/FACE: No signs of trauma. EENT: Denies eye pain, blurred vision, double vision, or light sensitivity. RESPIRATORY: Denies shortness of breath, cough, wheezing CARDIOVASCULAR: Denies chest pain, palpitation, syncope GASTROINTESTINAL/ABDOMINAL: Denies abdominal pain, constipation, diarrhea, nausea or vomiting GENITOURINARY: Denies dysuria or hematuria. MUSCULOSKELETAL: Denies joint pain, tenderness, or trauma. INTEGUMENTARY: Denies rash or itchiness NEUROLOGICAL/PSYCH: facial numbness PAST MEDICAL HISTORY: as above PAST SURGICAL HISTORY: as above PAST SOCIAL HISTORY: none FAMILY HISTORY: none Coded Allergies: No Known Allergies (Unverified Allergy, Unknown, 11/05/23) PHYSICAL EXAM Mental status: The patient is alert, attentive, and oriented. Speech is clear and fluent with good repetition, comprehension, and naming. Pt recalls 3/3 objects at 5 minutes. Cranial nerves: CN II: Visual harkins are full to confrontation. CN III, IV, : At primary gaze, there is no eye deviation. CN V: Facial sensation is intact to pinprick in all 3 divisions bilaterally. Corneal responses are intact. CN VII: Face is symmetric with normal eye closure and smile. CN VIII: Hearing is normal to rubbing fingers CN IX, X: Palate elevates symmetrically. Phonation is normal. CN XI: Head turning and shoulder shrug are intact CN XII: Tongue is midline with normal movements and no atrophy. Motor: There is no pronator drift of out-stretched arms. Muscle bulk and tone are normal. Strength is full bilaterally. Reflexes: Reflexes are 2+ and symmetric at the biceps, triceps, knees, and ankles. Plantar responses are flexor. Sensory: Light touch, pinprick, position sense, and vibration sense are intact in fingers and toes. Coordination: Rapid alternating movements and fine finger movements are intact. There is no dysmetria on [id number] and [id number]. There are no abnormal or extraneous movements. Romberg is absent. Gait/Stance: Not evaluated Vital Sign (Last 24 Hours) 11/24/24 11/25/24 11/25/24 20:30 03:32 07:38 Temp 97.5 Pulse 76 Resp 20 B/P (MAP) 114/79 Pulse Ox 97 O2 Delivery Room Air O2 Flow Rate 0 FiO2 21 Intake & Output (last 24hrs) 11/24/24 11/24/24 11/25/24 15:00 23:00 07:00 Intake Total 300.0 ml 400 ml Balance 300.0 ml 400 ml LABS: Laboratory: Test 11/24/24 06:32 11/24/24 06:10 11/23/24 21:22 11/23/24 19:30 Range/Units Fibrinogen 477 H 180-350 mg/dL Triglycerides Level 97 30-200 mg/dL Cholesterol Level 149 <200 mg/dL LDL Cholesterol 94 0-99 mg/dL HDL Cholesterol 43 35-85 mg/dL Vitamin B12 Level 3713 H 193-986 pg/mL Folic Acid (LAB) 18.60 2-20 ng/mL Urine Color COLORLESS YELLOW Urine Appearance CLEAR CLEAR Urine pH 6.0 5.0-8.0 Urine Specific [place] 1.008 1.001-1.031 Urine Protein NEGATIVE NEGATIVE mg/dL Urine Glucose (UA) NEGATIVE NEGATIVE mg/dL Urine Ketones NEGATIVE NEGATIVE mg/dL Urine Occult Blood NEGATIVE NEGATIVE Urine Nitrate NEGATIVE NEGATIVE Urine Bilirubin NEGATIVE NEGATIVE mg/dL Urine Urobilinogen 0.2 0.2-1.0 mg/dL Urine Leukocyte Esterase NEGATIVE NEGATIVE Alessia/uL Urine Opiates Screen NEGATIVE NEGATIVE Urine Barbiturates Screen NEGATIVE NEGATIVE Urine Phencyclidine Screen NEGATIVE NEGATIVE Urine Amphetamines Screen NEGATIVE NEGATIVE Urine Benzodiazepines Screen NEGATIVE NEGATIVE Urine Cocaine Screen NEGATIVE NEGATIVE Urine Marijuana (THC) Screen NEGATIVE NEGATIVE Troponin I High Sensitivity 8 4-50 ng/L Test 11/23/24 17:28 Range/Units White Blood Count 8.9 4.8-10.8 K/uL Red Blood Count 4.97 4.00-5.50 MIL/uL Hemoglobin 14.0 12.0-16.0 g/dL Hematocrit 42.5 36-48 % Mean Corpuscular Volume 85.5 79-99 fL Mean Corpuscular Hemoglobin 28.2 27.0-33.0 pg Mean Corpuscular Hemoglobin Concent 32.9 32.0-36.0 g/dL Red Cell Distribution Width 13.7 11.0-15.5 % Platelet Count 311 130-400 K/uL Mean Platelet Volume 10.2 7.5-10.5 fL Immature Granulocyte % (Auto) 0.2 0-1 % Neutrophils (%) (Auto) 64.0 40.0-77.0 % Lymphocytes (%) (Auto) 27.3 21.0-51.0 % Monocytes (%) (Auto) 6.4 3.0-13.0 % Eosinophils (%) (Auto) 1.2 0.0-8.0 % Basophils (%) (Auto) 0.9 0.0-5.0 % Neutrophils # (Auto) 5.7 1.8-7.7 K/uL Lymphocytes # (Auto) 2.4 1.0-4.8 K/uL Monocytes # (Auto) 0.6 0.1-1.0 K/uL Eosinophils # (Auto) 0.11 0.00-0.70 K/uL Basophils # (Auto) 0.08 0.00-0.20 K/uL Absolute Immature Granulocyte (auto 0.02 0-1 K/uL Nucleated Red Blood Cells 0.0 0.0-0.19 % Sodium Level 141 136-145 mmol/L Potassium Level 3.5 3.5-5.1 mmol/L Chloride Level 104 101-111 mmol/L Carbon Dioxide Level 30 21-32 mmol/L Blood Urea Nitrogen 14 7-18 mg/dL Creatinine 0.6 0.5-1.0 mg/dL Glomerular Filtration Rate Calc 106 >90 mL/min Random Glucose 99 70-105 mg/dL Hemoglobin A1c 6.4 H 4.0-6.0 % Estimated Average Glucose (eAG) 137 H 70-126 mg/dL Total Calcium 8.8 8.5-10.1 mg/dL Magnesium Level 1.80 1.80-2.40 mg/dL Total Creatine Kinase 78 # 21-232 U/L B-Type Natriuretic Peptide 14 0-100 pg/mL DIAGNOSTICS / RADIOLOGY: MRI brain w/o contrast: negative ASSESSMENT / PLAN: Ms. Garces is a 54-year-old female with a history of anxiety, depression, hypertension, dyslipidemia, and stroke 3 years ago presenting with hypertensive emergency and stroke-like symptoms. Hypertensive Emergency Assessment: Patient presented with severely elevated blood pressure (>200 mmHg systolic) and associated neurological symptoms, including difficulty speaking and left-sided weakness, mimicking her previous stroke symptoms. MRI was negative for acute stroke or transient ischemic attack. Symptoms improved with blood pressure reduction. This presentation is consistent with a hypertensive emergency, where severely elevated blood pressure can cause neurological symptoms similar to a stroke, especially in patients with a history of cerebrovascular events. Plan: - Blood pressure goal: maintain below 130/80 mmHg - Follow up with primary care physician (Dr. Ovalles) for ongoing blood pressure management - Medications for blood pressure control were initiated in the emergency department - No further neurological testing indicated at this time History of Stroke Assessment: Patient reports a history of stroke 3 years ago, which initially presented with left-sided weakness and numbness. She states she is recovering, suggesting some improvement in neurological function over time. Current neurological examination revealed no significant deficits. Plan: - Continue current stroke prevention measures - Maintain blood pressure control as part of secondary stroke prevention Thank you for your consultation. I will sign off. KEZIA ROY MD Nov 25, 2024 10:03
[2024-11-25 11:29] VITALS: BP 125/77; PULSE 77; RESP 18; TEMP 98.3
--- NOTE | 2024-11-25 12:35 | NUR ---
SPEECH NOTE: CAR MOVER coordinated with nurse Fried. As per nurse, patient tolerating diet recommendations of regular solids, thin liquids with no overt s/s of aspiration. Please re-consult speech therapy services if any s/s of aspiration arise. All questions answered. Addendum: 11/25/[address] [facility] Amended: Links added.
--- NOTE | 2024-11-25 16:34 | DS ---
[facility] DISCHARGE SUMMARY Date Patient Seen: Nov 25, 2024 Time of Visit: 1155 Supervising Physician: Dr. Mg Primary Care Physician: Dr. Candelario Ovalles Outpatient Specialists: Inpatient Consults: Neurology PROBLEM LIST: Suspected CVA/TIA, ruled out per imaging and neurology Hypertensive emergency, POA 200/98, resolved Intractable Left-sided headache, resolved Anxiety/depression Diabetes mellitus type 2with hyperglycemia A1c 6.4 Hypercholesteremia Obesity, BMI 34.3 History of prior CVA HOSPITAL COURSE: HPI (per admitting provider)Ms. Lezama, is a 54-year-old female with a history of CVA, anxiety, depression, diabetes-type II, high cholesterol, hypertension who presented with [facility] via EMS for evaluation of uncontrolled hypertension. The patient stated her blood pressure was over 200 systolic prior to arrival. She does have a history of hypertension and reports taking her medications as prescribed today. She is on lisinopril 20 mg and metoprolol. However, she was also having chest discomfort and worsening left-sided weakness along with left facial numbness. She does report having a history of stroke two years ago and has residual left-sided weakness but stated her weakness is worse today. She is having the same symptoms she had when she was diagnosed with a stroke two years ago. Patient was seen and examined by bedside with no family present. Patient at time of visit has no specific complaints. All symptoms have resolved. Patient with no neuro deficits at this time. Blood pressure has remained stable. Patient has been cleared for discharge from a Neurology standpoint. All imaging was unremarkable. As per Neurology patient denied have acute stroke or TIA. Symptoms were likely related to hypertensive emergency. Instructed patient will be getting discharged today and will need to follow up with PCP within 3-5 days upon discharge for close management of patient's blood pressure. Patient voices understanding and agrees with plan has no questions at this time. 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 MRI was negative for acute stroke or transient ischemic attack. Symptoms improved with blood pressure reduction. This presentation is consistent with a hypertensive emergency, where severely elevated blood pressure can cause neurological symptoms similar to a stroke, especially in patients with a history of cerebrovascular events. Plan: - Blood pressure goal: maintain below 130/80 mmHg - Follow up with primary care physician (Dr. Ovalles) for ongoing blood pressure management - Medications for blood pressure control were initiated in the emergency department - No further neurological testing indicated at this time History of Stroke Assessment: Patient reports a history of stroke 3 years ago, which initially presented with left-sided weakness and numbness. She states she is recovering, suggesting some improvement in neurological function over time. Current neurological examination revealed no significant deficits. Plan: - Continue current stroke prevention measures - Maintain blood pressure control as part of secondary stroke prevention PROCEDURES: as mentioned above DISCHARGE MEDICATIONS: Pt hemodynamically stable and afebrile at time of discharge. PCP notified of patients admission, hospital course and discharge. Continued Medications: Dicyclomine HCl (Bentyl) 20 Mg Tab 1 TAB PO TIDP PRN for EPIGASTRIC DISTRESS [Gabapentin] () 20 MG Metoprolol Succinate (Metoprolol Succinate) 25 Mg Tab.er.24h 1 TAB PO DAILY Pantoprazole Sodium (Pantoprazole Sodium) 20 Mg Tablet.dr 1 TAB PO DAILY Semaglutide (Ozempic) 1 Mg/0.75 Ml (4 Mg/3 Ml) Pen.injctr 1 MG SQ QWEEK Sertraline HCl (Sertraline HCl) 50 Mg Tablet 1 TAB PO DAILY Tetracycline HCl (Tetracycline HCl) 500 Mg Capsule 1 CAP PO QID PHYSICAL EXAM: GENERAL: Alert, awake oriented x 3 HEENT: EOMI, Sclera non icteric, moist mucosa NECK: Supple, no JVD, trachea midline LUNGS: Clear breath sounds bilaterally. No wheezes HEART: Regular rate and rhythm. Normal S1 and S2, without murmurs ABD: Abdomen soft, nontender. Bowel sounds present EXT: No clubbing cyanosis or edema NEURO: Alert and oriented X4. Left arm and left leg slight drift. Had trouble touching her nose with her left hand. Otherwise no other neuro deficits noted. FOLLOW-UP: Follow-up with PCP in 2-3 days RECOMMENDATIONS: See Discharge Instructions This case was seen and discussed with my supervising physician. 35 minutes spent on discharge process, including evaluation of the patient, discussion with nursing staff, medication reconciliation and follow-up appointments JENNIFER MENJIVAR Nov 25, 2024 16:34
--- NOTE | 2024-11-25 16:45 | NUR ---
PATIENT DISCHARGE PATIENT DISCHARGED. PERIPHERAL IV REMOVED CATHETER INTACT. DISCHARGE INSTRUCTIONS GIVEN. NO NEW PRESCRIPTIONS. PATIENT CONTINUE TO HOME MEDICATIONS. PATIENT AWARE TO F/U WITH PCP. ALL QUESTIONS ANSWERED. PATIENT TAKEN DOWN BY WHEELCHAIR. ALL BELONGINGS SENT WITH PATIENT.
== END 2024-11-25 16:50 | disposition home or self-care (01) | DRG 305 ==
LOC: EDH 16:55 → EDHIP 16:56 → OBSVTOIN 16:56 → 4DH 23:36
PROVIDERS: ADMIT Internal Medicine; ATTEND Internal Medicine
DX: I16.1 Hypertensive emergency (principal); I69.354 Hemiplegia and hemiparesis following cerebral infarction affecting left non-dominant side; R20.2 Paresthesia of skin; Z68.34 Body mass index [BMI] 34.0-34.9, adult; I10 Essential (primary) hypertension; F41.9 Anxiety disorder, unspecified; F32.A Depression, unspecified; E78.00 Pure hypercholesterolemia, unspecified; E66.9 Obesity, unspecified; E11.65 Type 2 diabetes mellitus with hyperglycemia; Z79.899 Other long term (current) drug therapy; Z98.51 Tubal ligation status; Z90.49 Acquired absence of other specified parts of digestive tract
CPT/HCPCS: 36415; 70450; 70544; 70547; 70551; 71045; 80048; 80061; 80305; 81003; 82550; 82607; 82746; 83036; 83735; 83880; 84484; 85025; 85384; 92522; 92610; 93005; 93306; 93356; 93880; 99285; G0378; J0360; Q2035; A4216; Q2038